=== PATIENT | male | born 1985 | race Caucasian/White ===

== ENCOUNTER 2020-04-03 01:30 | Outpatient (CLI) | payer OTHER, SELFPAY ==
[2020-04-03 20:39] LABS: SARS-CoV-2 RNA PCR Negative
== END 2020-04-03 01:31 | disposition home or self-care (01) ==
LOC: ANHCOVIDDT 01:30
PROVIDERS: PCP Family Medicine; Visit Provider Internal Medicine Gastroenterology
DX: Z01.812 Encounter for preprocedural laboratory examination (principal); Z20.828 Contact with and (suspected) exposure to other viral communicable diseases
CPT/HCPCS: 87635; C9803; U0003

== ENCOUNTER 2020-04-06 00:42 | Day surgery (SDC) | payer OTHER, SELFPAY ==
[2020-03-30 14:36] VITALS: BMI 27.6
--- NOTE | 2020-04-06 08:09 | WPDANESEPPF ---
Anes - Initial Pre Proc Eval Procedure: Operation Date: 04/06/20 12:00 Proposed Procedures p Screening Colonoscopy - Jp Sequeira MD Date/Time: 04/06/20 08:09 Surgeon: Jp Sequeira MD Pre Op Diagnosis: neoplasm screening Patient Data Age: 34 Gender: M Height: 1.85 m Weight: 95 kg Allergies Allergy/AdvReac Type Severity Reaction Status Date / Time No Known Allergies Allergy Mild Verified 04/06/20 10:47 Home Medications Medication Instructions Recorded Confirmed Type sumatriptan succinate 50 mg tablet See Rx Instructions PO .COMPLEX 06/28/19 03/30/20 Rx #10 tablet lactulose 20 gram/30 mL oral 20 g PO DAILY PRN #1200 ml 03/30/20 Rx solution peg 3350-electrolytes 236 240 ml PO Q10M #4000 ml 03/30/20 Rx gram-22.74 gram-6.74 gram-5.86 gram solution Patient hx anesthesia problems: none Family hx anesthesia problems: none PMFSH Past Medical History Medical History (Updated 04/06/20 @ 08:10 by Bernardo Moyer MD) Migraine Pain, rectal Rectal bleeding Family History Family History Father Diabetes mellitus Hypertension Family history of hepatitis Family history of kidney disease Social History Social History Smoking status: Never smoker Alcohol intake: current Drinks per week: 1 Alcohol use details: BEER Substance use: never Substance use type: does not use Spiritual care concerns: No Anes - Eval Final PreProcedure Day of Procedure 04/06/20 08:09 Patient weight: overweight Heart: regular rate and rhythm Lungs: clear to auscultation and normal air movement Airway: Mallampati scale class II Neurological: alert and oriented Last oral intake: >/= 8 hours ASA classification: II Emergent: no Anesthetic plan: proceed Anesthesia type and monitoring: general GIVS Informed Consent: The patient's anesthetic plan and its attendant risks and benefits were discussed with the patient/family/POA. Questions were solicited and answers provided to the satisfaction of the patient/family/POA.
[2020-04-06 10:49] VITALS: BP 143/86; PULSE 77; RESP 17; TEMP 36.6; O2SAT 100; BMI 27.8
[2020-04-06] MEDS: LACTATED RINGERS 1,000 ML 150 ML IV CONT (11:06)
--- NOTE | 2020-04-06 12:14 | WPDHPUPDATE1 ---
History and Physical Update Update Date/Time: 04/06/20 12:14 History and Physical has been reviewed, including an updated exam of the patient. There are NO changes in the patient's condition. Risks, benefits, and alternatives have been discussed and questions answered. Patient agrees to proceed with procedure.
[2020-04-06 12:37] VITALS: BP 121/73; PULSE 79; RESP 24; O2SAT 97
[2020-04-06 12:47] VITALS: BP 125/73; PULSE 77; RESP 20; O2SAT 97
[2020-04-06 12:57] VITALS: BP 123/66; PULSE 61; RESP 18; O2SAT 99
[2020-04-06 13:07] VITALS: BP 130/73; PULSE 59; RESP 18; O2SAT 99
== END 2020-04-06 13:22 | disposition home or self-care (01) ==
PROVIDERS: PCP Family Medicine; Visit Provider Internal Medicine Gastroenterology
PROC: 0DJD8ZZ Inspection of Lower Intestinal Tract, Via Natural or Artificial Opening Endoscopic (ICD-10-PCS; CPT 45378; principal; 2020-04-06 12:00)
DX: K63.3 Ulcer of intestine (principal); K58.1 Irritable bowel syndrome with constipation; K62.89 Other specified diseases of anus and rectum
CPT/HCPCS: 45380; 88305; J2704; J7120

== ENCOUNTER → 2021-01-27 00:30 | Outpatient (CLI) | payer OTHER, SELFPAY ==
[2021-01-27 21:01] LABS: SARS-CoV-2 RNA PCR Negative
== END ==
PROVIDERS: PCP Family Medicine; Visit Provider Family Medicine
DX: R05 Cough (principal); Z20.828 Contact with and (suspected) exposure to other viral communicable diseases
CPT/HCPCS: C9803; U0003; U0005